=== PATIENT | female | born 1945 | race Caucasian/White ===

== ENCOUNTER 2024-05-14 09:55 | Inpatient (IN) | payer MEDICARE, OTHER ==
[~2024-05-14] VITALS: Ht 165.1 cm; Wt 68.2 kg
[~2024-05-14 09:55] MED LIST: ALPR-304 PO; ATOR20TA PO; HYDR25TA5 PO
[2024-05-14 09:56] VITALS: TEMP 97.3
[2024-05-14] MEDS: normal saline 1000ML IV soln IV ONE (11:25)
[2024-05-14] MEDS: CefTRIAXone 2gm/D5W 50ml BAG 50 ML IV ONE (11:25)
[2024-05-14 11:32] LABS: ALBUMIN 3.2 G/DL (3.4-5.0); ANION GAP 5 (8-16); BLOOD UREA NITROGEN 27 MG/DL (7-18); BUN/CREATININE RATIO 20.3 (10.0-20.0); CALCIUM 8.6 MG/DL (8.5-10.1); CHLORIDE 113 MMOL/L (99-107); CREATININE 1.33 MG/DL (0.40-0.90); GLUCOSE 105 MG/DL (70-104); POTASSIUM 4.7 MMOL/L (3.5-5.1); SODIUM 144 MMOL/L (135-145); TOTAL CARBON DIOXIDE 26.2 MMOL/L (24-32); eCRCL 32 ML/MIN; eGFR 39 ML/MIN
[2024-05-14] MEDS: vancomycin/NS 1 GM ADD-VANTAGE 250 ML IV ONE (12:33)
[2024-05-14 12:50] LABS: BASOPHILS % (AUTO) 0.3 % (0-1); EOSINOPHILS # (AUTO) 0.1 X10'3 (0-0.9); EOSINOPHILS % (AUTO) 0.9 % (0-6); HEMOGLOBIN 13.9 g/dl (12.0-16.0); LYMPHOCYTES % (AUTO) 15.7 % (21-51); MEAN CORPUSCULAR HEMOGLOBIN 29.8 PG (27.0-31.0); MEAN CORPUSCULAR HGB CONC 32.4 g/dL (33.0-36.5); MEAN CORPUSCULAR VOLUME 91.9 FL (78-98); MEAN PLATELET VOLUME 7.9 FL (7.4-10.4); MONOCYTES # (AUTO) 0.5 X10'3 (0-0.9); MONOCYTES % (AUTO) 3.7 % (2-12); NEUTROPHILS # (AUTO) 10.3 X10'3 (1.8-7.7); NEUTROPHILS % (AUTO) 79.4 % (42-75); PLATELET COUNT 231 X10'3 (140-440); RED BLOOD COUNT 4.67 X10'6 (4.20-5.60); RED CELL DISTRIBUTION WIDTH 14.7 % (11.5-14.5)
[2024-05-14] MEDS ORDERED: magnesium sulf-water 2g/50mL 50 ML IV PRN (13:50)
[2024-05-14] MEDS ORDERED: HYDROcodone/acetaminophen 5mg/325mg tablet PO PRN (13:50)
[2024-05-14] MEDS ORDERED: acetaminophen 325mg tablet PO PRN (13:50)
[2024-05-14] MEDS ORDERED: potassium Cl 40MEQ/1/2NS 520ml 520 ML IV PRN (13:50)
[2024-05-14] MEDS ORDERED: morphine 2 MG/ML inj. syringe IV PRN (13:50)
[2024-05-14] MEDS ORDERED: ondansetron/PF 4mg/2ml inj IV PRN (13:50)
[2024-05-14] MEDS ORDERED: VANCOMYCIN 750MG IV in NS 250 ML IV SCH (15:00)
[2024-05-14] MEDS: VANCOMYCIN 750MG IV in NS 250 ML IV ONE (15:52)
[2024-05-14] MEDS: normal saline 1000ml 1,000 ML IV SCH (15:55)
[2024-05-14 18:10] VITALS: PULSE 71; O2SAT 98
[2024-05-14] MEDS: ziprasidone IM 20mg inj **IM only IM PRN (18:39)
[2024-05-14] MEDS: K and/or MAG REPLACEMENT MC SCH (20:00)
[2024-05-14] MEDS: heparin, porcine 5000 units/ml vial SQ SCH (20:00)
[2024-05-14 21:57] VITALS: RESP 16
[2024-05-15] MEDS: morphine 2 MG/ML inj. syringe IV PRN (01:55)
[2024-05-15 02:55] VITALS: RESP 18
[2024-05-15] MEDS: CefTRIAXone/D5W-Rocephin 1gm 50 ML IV SCH (06:06)
[2024-05-15 10:29] LABS: BASOPHILS % (AUTO) 0.5 % (0-1); EOSINOPHILS # (AUTO) 0.4 X10'3 (0-0.9); EOSINOPHILS % (AUTO) 4.5 % (0-6); HEMATOCRIT 35.5 % (35.0-45.0); HEMOGLOBIN 11.7 g/dl (12.0-16.0); LYMPHOCYTES # (AUTO) 3.7 X10'3 (1.1-4.8); LYMPHOCYTES % (AUTO) 40.5 % (21-51); MEAN CORPUSCULAR HEMOGLOBIN 29.9 PG (27.0-31.0); MEAN CORPUSCULAR HGB CONC 32.9 g/dL (33.0-36.5); MEAN CORPUSCULAR VOLUME 91.1 FL (78-98); MEAN PLATELET VOLUME 7.5 FL (7.4-10.4); MONOCYTES # (AUTO) 0.7 X10'3 (0-0.9); MONOCYTES % (AUTO) 7.7 % (2-12); NEUTROPHILS # (AUTO) 4.2 X10'3 (1.8-7.7); NEUTROPHILS % (AUTO) 46.8 % (42-75); PLATELET COUNT 206 X10'3 (140-440); RED CELL DISTRIBUTION WIDTH 14.4 % (11.5-14.5)
[2024-05-15 10:47] LABS: ALANINE AMINOTRANSFERASE 10 U/L (12-78); ALBUMIN/GLOBULIN RATIO 0.8 (1.1-1.5); ALKALINE PHOSPHATASE 120 IU/L (46-116); ANION GAP 9 (8-16); ASPARTATE AMINO TRANSFERASE 19 U/L (10-37); BILIRUBIN,TOTAL 0.6 MG/DL (0.1-1.0); BLOOD UREA NITROGEN 15 MG/DL (7-18); BUN/CREATININE RATIO 16.7 (10.0-20.0); CALCIUM 8.7 MG/DL (8.5-10.1); CHLORIDE 109 MMOL/L (99-107); GLUCOSE 87 MG/DL (70-104); MAGNESIUM 1.7 MG/DL (1.5-2.4); POTASSIUM 3.5 MMOL/L (3.5-5.1); SODIUM 144 MMOL/L (135-145); TOTAL CARBON DIOXIDE 25.7 MMOL/L (24-32); TOTAL PROTEIN 6.6 G/DL (6.4-8.2); eCRCL 47 ML/MIN; eGFR 61 ML/MIN
[2024-05-15 11:00] VITALS: BP 164/59
[2024-05-15] MEDS ORDERED: VANCOMYCIN 750MG IV in NS 250 ML IV SCH (15:00)
[2024-05-17] MEDS ORDERED: VANCOMYCIN LEVEL IV ONE (14:30)
== END 2024-05-15 11:53 | disposition home or self-care (01) | DRG 682 ==
LOC: ER 09:56 → ED HOLD 14:21 → EDBEDREQ 18:56 → PCU 3S 20:05
PROVIDERS: ADMIT Family Medicine; ATTEND Family Medicine
DX: N17.0 Acute kidney failure with tubular necrosis (principal); G93.41 Metabolic encephalopathy; I95.9 Hypotension, unspecified; E86.0 Dehydration; F03.90 Unspecified dementia, unspecified severity, without behavioral disturbance, psychotic disturbance, mood disturbance, and anxiety; D72.829 Elevated white blood cell count, unspecified; M47.816 Spondylosis without myelopathy or radiculopathy, lumbar region; I10 Essential (primary) hypertension; Z20.822 Contact with and (suspected) exposure to COVID-19; Z79.899 Other long term (current) drug therapy; Z80.0 Family history of malignant neoplasm of digestive organs; Z82.0 Family history of epilepsy and other diseases of the nervous system; Z86.73 Personal history of transient ischemic attack (TIA), and cerebral infarction without residual deficits; Z88.0 Allergy status to penicillin; Z88.2 Allergy status to sulfonamides; Z90.710 Acquired absence of both cervix and uterus
CPT/HCPCS: 36415; 70450; 71045; 80048; 80053; 83605; 83735; 84145; 84484; 85025; 87040; 87081; 87502; 87503; 87811; 93005; 96374; 99285; A6250; G0378; J0696; J2270; J3370; J3486; J7030; J7040; J7050

== ENCOUNTER 2024-05-22 09:20 | Inpatient (IN) | payer MEDICARE, OTHER ==
[~2024-05-22] VITALS: Ht 160 cm; Wt 72.0 kg
[~2024-05-22 09:20] MED LIST changes: -HYDR25TA5 PO
[2024-05-22] MEDS: haloperidol lactate 5mg/ml inj IM ONE ×2 (10:04→17:25)
[2024-05-22] MEDS: normal saline 1000ML IV soln IVB ONE (10:05)
[2024-05-22 10:24] LABS: BASOPHILS % (AUTO) 0.7 % (0-1); EOSINOPHILS # (AUTO) 0.2 X10'3 (0-0.9); HEMATOCRIT 36.1 % (35.0-45.0); HEMOGLOBIN 11.9 g/dl (12.0-16.0); LYMPHOCYTES # (AUTO) 1.6 X10'3 (1.1-4.8); MEAN CORPUSCULAR HEMOGLOBIN 30.1 PG (27.0-31.0); MEAN CORPUSCULAR HGB CONC 33.1 g/dL (33.0-36.5); MEAN CORPUSCULAR VOLUME 90.9 FL (78-98); MEAN PLATELET VOLUME 7.6 FL (7.4-10.4); MONOCYTES # (AUTO) 0.4 X10'3 (0-0.9); MONOCYTES % (AUTO) 8.4 % (2-12); NEUTROPHILS # (AUTO) 3.1 X10'3 (1.8-7.7); NEUTROPHILS % (AUTO) 56.9 % (42-75); PLATELET COUNT 203 X10'3 (140-440); RED BLOOD COUNT 3.97 X10'6 (4.20-5.60); RED CELL DISTRIBUTION WIDTH 14.4 % (11.5-14.5); WHITE BLOOD COUNT 5.4 X10'3 (4.5-11.0)
[2024-05-22] MEDS: cefepime inj 2 GM in normal saline 100ml IV soln 100 ML IV ONE (10:36)
[2024-05-22 10:57] LABS: ALANINE AMINOTRANSFERASE 21 U/L (12-78); ALBUMIN/GLOBULIN RATIO 0.8 (1.1-1.5); ALKALINE PHOSPHATASE 115 IU/L (46-116); ANION GAP 8 (8-16); ASPARTATE AMINO TRANSFERASE 18 U/L (10-37); BILIRUBIN,TOTAL 0.5 MG/DL (0.1-1.0); BLOOD UREA NITROGEN 21 MG/DL (7-18); CALCIUM 8.4 MG/DL (8.5-10.1); CHLORIDE 107 MMOL/L (99-107); GLUCOSE 175 MG/DL (70-104); POTASSIUM 3.8 MMOL/L (3.5-5.1); PRO BRAIN NATRIURETIC PEPTIDE 600 PG/ML (0-450); SODIUM 140 MMOL/L (135-145); TOTAL CARBON DIOXIDE 24.9 MMOL/L (24-32); TOTAL PROTEIN 6.6 G/DL (6.4-8.2); eCRCL 28 ML/MIN; eGFR 36 ML/MIN
[2024-05-22] MEDS: VANCOMYCIN 1,500MG in normal saline IV soln 300 ML IV ONE (12:26)
[2024-05-22 12:44] LABS: BILIRUBIN,URINE NEGATIVE (Neg); CLARITY,URINE CLEAR (Clear); COLOR,URINE YELLOW (Yellow); GLUCOSE, URINE NEGATIVE (Neg); KETONES,URINE NEGATIVE (Neg); LEUKOCYTE ESTERASE ,URINE NEGATIVE (Neg); NITRITES, URINE NEGATIVE (Neg); OCCULT BLOOD,URINE NEGATIVE (Neg); PROTEIN,URINE NEGATIVE (Neg); UROBILINOGEN,URINE 0.2 E.U/dL (0.2-1.0)
[2024-05-22 12:46] LABS: UA COLLECTION TYPE FOLEY CATH
[2024-05-22] MEDS ORDERED: magnesium sulf-water 4G/100mL 100 ML IV PRN (14:20)
[2024-05-22] MEDS ORDERED: acetaminophen 325mg tablet PO PRN (14:20)
[2024-05-22] MEDS ORDERED: ondansetron/PF 4mg/2ml inj IV PRN (14:20)
[2024-05-22] MEDS ORDERED: potassium Cl 40MEQ/1/2NS 520ml 520 ML IV PRN (14:20)
[2024-05-22] MEDS ORDERED: magnesium Cl slow-release 64mg tablet PO PRN (14:20)
[2024-05-22] MEDS ORDERED: mag hydrox/Alum hydrox/simeth 30ml oral suspension PO PRN (14:20)
[2024-05-22] MEDS ORDERED: magnesium hydroxide 30ml (MOM) UD suspension PO PRN (14:20)
[2024-05-22] MEDS ORDERED: magnesium sulf-water 2g/50mL 50 ML IV PRN (14:20)
[2024-05-22] MEDS ORDERED: potassium Cl 20 mEq SR tablet PO PRN ×2 (14:20)
[2024-05-22] MEDS: normal saline 1000ml 1,000 ML IV SCH (14:36)
[2024-05-22] MEDS: K and/or MAG REPLACEMENT MC SCH (20:00)
[2024-05-22] MEDS: hydrALAZINE 20mg/ml inj. IV PRN (20:09)
[2024-05-22] MEDS: heparin, porcine 5000 units/ml vial SQ SCH (20:10)
[2024-05-22] MEDS: normal saline 1000ml 1,000 ML IV ONE (20:55)
[2024-05-22] MEDS ORDERED: DIVA125T31 PO (21:01)
[2024-05-22] MEDS ORDERED: QUET50TA24 PO (21:01)
[2024-05-22 23:15] VITALS: BP 160/73; PULSE 95; RESP 16; O2SAT 95
[2024-05-23 06:00] VITALS: PULSE 83; RESP 15; TEMP 98.2; O2SAT 99
[2024-05-23 07:55] LABS: BASOPHILS # (AUTO) 0.1 X10'3 (0-0.2); BASOPHILS % (AUTO) 0.8 % (0-1); EOSINOPHILS # (AUTO) 0.3 X10'3 (0-0.9); HEMATOCRIT 38.1 % (35.0-45.0); HEMOGLOBIN 12.7 g/dl (12.0-16.0); LYMPHOCYTES # (AUTO) 2.4 X10'3 (1.1-4.8); LYMPHOCYTES % (AUTO) 35.3 % (21-51); MEAN CORPUSCULAR HEMOGLOBIN 30.4 PG (27.0-31.0); MEAN CORPUSCULAR HGB CONC 33.4 g/dL (33.0-36.5); MEAN CORPUSCULAR VOLUME 91.2 FL (78-98); MEAN PLATELET VOLUME 7.6 FL (7.4-10.4); MONOCYTES # (AUTO) 0.7 X10'3 (0-0.9); MONOCYTES % (AUTO) 9.8 % (2-12); NEUTROPHILS # (AUTO) 3.4 X10'3 (1.8-7.7); NEUTROPHILS % (AUTO) 50.1 % (42-75); PLATELET COUNT 226 X10'3 (140-440); RED BLOOD COUNT 4.17 X10'6 (4.20-5.60); RED CELL DISTRIBUTION WIDTH 14.6 % (11.5-14.5); WHITE BLOOD COUNT 6.8 X10'3 (4.5-11.0)
[2024-05-23 08:00] VITALS: BP 167/65; RESP 15; O2SAT 99
[2024-05-23 08:06] LABS: ALBUMIN 2.9 G/DL (3.4-5.0); ANION GAP 5 (8-16); BLOOD UREA NITROGEN 12 MG/DL (7-18); CALCIUM 8.7 MG/DL (8.5-10.1); CHLORIDE 110 MMOL/L (99-107); CREATININE 0.86 MG/DL (0.40-0.90); GLUCOSE 96 MG/DL (70-104); MAGNESIUM 2.1 MG/DL (1.5-2.4); POTASSIUM 3.5 MMOL/L (3.5-5.1); SODIUM 139 MMOL/L (135-145); TOTAL CARBON DIOXIDE 23.6 MMOL/L (24-32); eCRCL 45 ML/MIN; eGFR 64 ML/MIN
[2024-05-23 11:00] VITALS: BP 167/62; PULSE 81; RESP 18; TEMP 97.9; O2SAT 94
[2024-05-23 18:00] VITALS: BP 167/62; PULSE 101; RESP 18; TEMP 98.3; O2SAT 94
[2024-05-23 20:00] VITALS: RESP 15; O2SAT 99
[2024-05-24 07:00] VITALS: BP 154/56; PULSE 73; RESP 17; TEMP 97.9; O2SAT 94
[2024-05-24 07:11] LABS: BASOPHILS % (AUTO) 0.6 % (0-1); EOSINOPHILS # (AUTO) 0.2 X10'3 (0-0.9); EOSINOPHILS % (AUTO) 2.8 % (0-6); HEMATOCRIT 34.2 % (35.0-45.0); HEMOGLOBIN 11.5 g/dl (12.0-16.0); LYMPHOCYTES # (AUTO) 3.3 X10'3 (1.1-4.8); LYMPHOCYTES % (AUTO) 45.6 % (21-51); MEAN CORPUSCULAR HEMOGLOBIN 30.5 PG (27.0-31.0); MEAN CORPUSCULAR HGB CONC 33.7 g/dL (33.0-36.5); MEAN CORPUSCULAR VOLUME 90.4 FL (78-98); MEAN PLATELET VOLUME 7.7 FL (7.4-10.4); MONOCYTES # (AUTO) 0.8 X10'3 (0-0.9); NEUTROPHILS # (AUTO) 2.9 X10'3 (1.8-7.7); PLATELET COUNT 210 X10'3 (140-440); RED BLOOD COUNT 3.78 X10'6 (4.20-5.60); RED CELL DISTRIBUTION WIDTH 14.2 % (11.5-14.5); WHITE BLOOD COUNT 7.2 X10'3 (4.5-11.0)
[2024-05-24] MEDS: quetiapine 100mg tablet PO SCH (07:11)
[2024-05-24] MEDS: divalproex sod 125mg tablet.DR PO SCH (07:11)
[2024-05-24 07:21] LABS: ALBUMIN 2.8 G/DL (3.4-5.0); ANION GAP 7 (8-16); BLOOD UREA NITROGEN 15 MG/DL (7-18); CALCIUM 8.3 MG/DL (8.5-10.1); CHLORIDE 110 MMOL/L (99-107); CREATININE 0.88 MG/DL (0.40-0.90); GLUCOSE 92 MG/DL (70-104); MAGNESIUM 1.8 MG/DL (1.5-2.4); POTASSIUM 3.5 MMOL/L (3.5-5.1); SODIUM 140 MMOL/L (135-145); TOTAL CARBON DIOXIDE 23.3 MMOL/L (24-32); eCRCL 44 ML/MIN; eGFR 62 ML/MIN
[2024-05-24 08:00] VITALS: RESP 17; O2SAT 94
[2024-05-24] MEDS: amLODIPine 5mg tablet PO ONE (08:16)
[2024-05-24 11:00] VITALS: BP 151/64; PULSE 62; RESP 14; TEMP 97.9; O2SAT 96
[2024-05-24] MEDS ORDERED: AMLO5TAB16 PO (12:27)
[2024-05-25] MEDS ORDERED: amLODIPine 5mg tablet PO SCH (08:00)
== END 2024-05-24 14:40 | disposition home or self-care (01) | DRG 640 ==
LOC: ER 09:20 → ED HOLD 18:41 → ORTHO 4S 18:41 → UNDOADMIN 18:41 → EDBEDREQ 22:25
PROVIDERS: ADMIT Family Medicine; ATTEND Family Medicine
DX: E86.0 Dehydration (principal); G93.41 Metabolic encephalopathy; N17.0 Acute kidney failure with tubular necrosis; E87.20 Acidosis, unspecified; I10 Essential (primary) hypertension; Z20.822 Contact with and (suspected) exposure to COVID-19; F02.80 Dementia in other diseases classified elsewhere, unspecified severity, without behavioral disturbance, psychotic disturbance, mood disturbance, and anxiety; G30.9 Alzheimer's disease, unspecified; Z80.0 Family history of malignant neoplasm of digestive organs; Z88.0 Allergy status to penicillin; Z88.2 Allergy status to sulfonamides
CPT/HCPCS: 36415; 70450; 71045; 80048; 80053; 81003; 83605; 83735; 83880; 84145; 84484; 85025; 87040; 87502; 87503; 87811; 92508; 92616; 93005; 96361; 96365; 97161; 97530; 99285; G0378; J0360; J0692; J1630; J1644; J3370; J7030; J7040